=== PATIENT | male | born 1940 ===

== ENCOUNTER 2017-10-03 07:12 | Day surgery (SDC) | payer MEDICARE ==
[2017-09-30 11:19] VITALS: BMI 25.7
[2017-10-03] MEDS ORDERED: ePHEDrine 50 mg/ml Inj ONE (07:21)
[2017-10-03] MEDS ORDERED: Propofol 10 mg/ml Inj (20 ML) ONE ×2 (07:21→09:48)
[2017-10-03] MEDS ORDERED: Midazolam 2 MG/2 ML VIAL ONE (07:21)
[2017-10-03] MEDS ORDERED: Succinylcholine 200 mg/10 ml Inj IV ONE (07:22)
[2017-10-03] MEDS ORDERED: Rocuronium 10 mg/ml (5 ml) ONE (07:22)
[2017-10-03 09:14] LABS: INR 1.2 (0.9-1.2); PARTIAL THROMBOPLASTIN TIME 33.8 Seconds (25.6-37.1); PROTHROMBIN TIME 13.1 Seconds (9.8-13.1)
[2017-10-03] MEDS ORDERED: Lidocaine 1% 5ml Abboject IV ONE (09:48)
[2017-10-03] MEDS ORDERED: Lidocaine 2% Jelly (Uro-Jet) ONE (10:26)
[2017-10-03] MEDS ORDERED: cefTRIAXone (Rocephin) 1 gm Inj ONE (10:26)
[2017-10-03] MEDS ORDERED: Lactated Ringer's 500 ML IV ONE (10:28)
[2017-10-03] MEDS ORDERED: Lidocaine 2% Jelly (5 ml) TOP ONE (10:40)
[2017-10-03] MEDS ORDERED: cefTRIAXone (Rocephin) 1 gm Inj IM ONE (10:40)
[2017-10-03] MEDS ORDERED: Lidocaine 2% Jelly (Uro-Jet) TOP ONE ×2 (10:45)
[2017-10-03] MEDS ORDERED: Lactated Ringer's 1,000 ML IV SCH (11:15)
[2017-10-03 13:15] VITALS: RESP 18
[2017-10-03 16:28] VITALS: O2SAT 100
[2017-10-03 16:29] VITALS: BP 138/84; PULSE 84; TEMP 98.1
--- NOTE | 2017-10-19 02:11 | OP ---
PROCEDURE DATE: 10/03/2017 PREOPERATIVE DIAGNOSIS: Gross hematuria. POSTOPERATIVE DIAGNOSIS: Hemorrhagic prostate. PROCEDURE PERFORMED ON THE PATIENT: Cystoscopy with prostate biopsy and fulguration. DESCRIPTION OF PROCEDURE: The patient was placed on the operating room table in dorsal lithotomy position. The area of the groin was draped and prepped in the sterile manner. I use the #21 cystoscope to gain access into the bladder at the level of the prostate and there was noted to be some bleeding at the level of prostatic urethra. There was some area of tissue that appeared to be slightly irregular in nature. I took a biopsy of that area and cauterized that area. Once inside the bladder, there was no unusual findings of bladder polyps, tumors, or active bleeders and at that time then the reevaluation of the prostatic urethra was done. I used to gain some to cauterize that portion of the prostate and then the instrumentation was removed. The specimen was sent for analysis. The patient then was taken from the operating room in good condition. Pavan Nathan MD
== END 2017-10-03 16:30 | disposition home or self-care (01) ==
LOC: H.OPSURG 07:12
PROVIDERS: ATTEND Urology
DX: R31.0 Gross hematuria (principal); I48.91 Unspecified atrial fibrillation; I10 Essential (primary) hypertension
CPT/HCPCS: 36415; 52204; 85610; 85730; 88305; 88307; J0696; J2704; J2765; J3010; J7120